=== PATIENT | female | born 1945 | race Caucasian/White ===

== ENCOUNTER 2016-11-29 09:34 | Emergency (ER) | payer MEDICARE, BC, MEDICAID ==
[2016-11-29] MEDS ORDERED: methylPREDNISolone Acetate 40 MG/ML SDV IARTIC ONE (10:29)
[2016-11-29 11:22] VITALS: BP 157/72
--- NOTE | 2016-11-29 12:46 | EDM.PDOC ---
ED HPI GENERAL MEDICAL PROBLEM - General Chief Complaint: General Stated Complaint: RIGHT IS VERY SORE AND PAINFUL Time Seen by Provider: 11/29/16 10:10 Source of Information: Reports: Patient History Limitations: Reports: No Limitations - History of Present Illness INITIAL COMMENTS - FREE TEXT/NARRATIVE: This patient complains of right wrist pain for one week. She says the pain is getting progressively worse. She had to take a pain pill last night (Narco 5/ 325) she takes meloxicam regularly. She has history of diabetes. She denies any fever. She said later that she hasn't slept for the past 2 nights because it hurts so much. She hasn't seen her doctor for this. She was bitten and they back of the leg by a tick a few weeks ago. Right Hand Pain Score (Numeric/FACES): 9 - Related Data Allergies Allergy/AdvReac Type Severity Reaction Status Date / Time aspirin Allergy Difficulty Verified 11/29/16 10:37 Breathing cephalexin [From Keflex] Allergy Wheezing Verified 11/29/16 10:37 phenazopyridine Allergy Rash Verified 11/29/16 10:37 [From Pyridium] Home Meds: Home Meds Cranberry 200 mg PO DAILY 11/29/16 [History] Dulaglutide [Trulicity] 0.75 mg SUBCUT WEEKLY 11/29/16 [History] Fish Oil/[place]-3 Fatty Acids [Fish Oil 1,000 MG] 1,000 mg PO DAILY 11/29/16 [ History] Fluticasone Propionate [Flovent Diskus] 50 mcg IH DAILY 11/29/16 [History] Insulin Detemir [Levemir] 54 unit SQ DAILY 11/29/16 [History] Levothyroxine 75 mcg PO ACBREAKFAST 11/29/16 [History] Losartan/Hydrochlorothiazide [Hyzaar 50-12.5 Tablet] 1 each PO DAILY 11/29/16 [ History] Meloxicam [Mobic] 15 mg PO DAILY 11/29/16 [History] Multivitamin with Minerals [Multiple Vitamin] 1 tab PO DAILY 11/29/16 [History] Ranitidine [Zantac] 300 mg PO BEDTIME 11/29/16 [History] Simvastatin [Zocor] 40 mg PO BEDTIME 11/29/16 [History] Zafirlukast [Accolate] 20 mg PO BID 11/29/16 [History] metFORMIN [Glucophage] 500 mg PO BIDMEALS 11/29/16 [History] Past Medical History HEENT History: Reports: Impaired Vision 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 History: 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, 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: 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/Metabolic 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: Reports: Diabetes, Type II, Hypothyroidism - Infectious Disease History Infectious Disease History: Reports: Chicken Pox, Measles, Mumps - Past Surgical History GI Surgical History: Reports: Cholecystectomy Female Surgical History: Reports: Hysterectomy Social & Family History - Tobacco Use Smoking Status *Q: Never Smoker - Caffeine Use Caffeine Use: Reports: Soda - Recreational Drug Use Recreational Drug Use: No ED ROS GENERAL - Review of Systems Review Of Systems: See Below Constitutional: Reports: No Symptoms HEENT: Reports: No Symptoms Respiratory: Reports: No Symptoms 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: Reports: No Symptoms Endocrine: Reports: No Symptoms GI/Abdominal: Reports: No Symptoms : Reports: No Symptoms Musculoskeletal: Reports: Other (See HPI) Skin: Reports: No Symptoms Neurological: Reports: No Symptoms ED EXAM, GENERAL - Physical Exam Exam: See Below Exam Limited By: No Limitations General Appearance: Alert, WD/WN, Mild Distress Eye Exam: Bilateral Eye: Normal Inspection Throat/Mouth: Normal Inspection Neck: Normal Inspection Respiratory/Chest: Lungs Clear 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: Normal Peripheral Pulses, Regular Rate, Rhythm Extremities: Other (There is some mild swelling and suggestion of an effusion to the right wrist. There is limited range of motion of the wrist. She says it hurts to move her fingers. Skin color is completely normal. There is no erythema to the wrist. There is no increased warmth to the right wrist.) Neurological: Alert, Oriented Psychiatric: Normal Affect Skin Exam: Warm, Dry, Intact. No: Rash Course - Vital Signs Last Recorded V/S: Last Vital Signs Temp 36.9 C 11/29/16 09:56 Pulse 84 11/29/16 11:20 Resp 15 11/29/16 11:20 BP 157/72 H 11/29/16 11:20 Pulse Ox 95 11/29/16 11:20 - Orders/Labs/Meds Orders: Active Orders 24 hr Category Date Time Status CULTURE BODY FLUID + SMEAR [RM] Routine Lab 11/29/16 12:32 Results LYME AB SCREEN RFLX [REF] Routine Lab 11/29/16 12:32 Received Labs: Laboratory Tests 11/29/16 Range/Units 12:32 Fluid Type Oth Fluid WBC 25877 /ul Fluid RBC [id number] /ul Fluid Diff Comment Fluid Mononuclear Cell 12 % Fl Polymorphonucl Cell 88 % Meds: Medications Discontinued Medications Generic Name Dose Route Start Last Admin Trade Name Marco PRN Reason Stop Dose Admin Lidocaine HCl 5 ml 11/29/16 10:29 11/29/16 10:38 Xylocaine-Mpf 1% INJECT 11/29/16 10:30 5 ml ONETIME ONE Administration Methylprednisolone Acetate 40 mg 11/29/16 10:29 11/29/16 10:38 Depo-Medrol IARTIC 11/29/16 10:30 40 mg ONETIME ONE Administration - Re-Assessments/Exams Free Text/Narrative Re-Assessment/Exam: 11/29/16 15:20 Exam of the right wrist gives no suggestion of a septic joint. My initial plan was for her to just use analgesics but I would put her on doxycycline just because of her history of a bite. She complained more that the pain was so bad she couldn't sleep and she asked me to go ahead and do a steroid injection. I explained to her the risk of joint aspiration and that it could possibly to infection and that would require surgery. I didn't feel that at this time it was really needed however she stated again how uncomfortable she was. Procedure: Wrist aspiration with corticosteroid injection. A consent form was requested however at the time of the procedure a determined that that had never been completed. I explained to the patient again the risks of the procedure being possibly joint infection and bleeding. She voiced understanding that we both agreed that the amount of pain she was having justified the procedure. The wrist was draped with sterile towels and using sterile procedure the dorsum of the wrist was cleaned with Betadine swab x3 this being applied to all the way to the fingertips and jail up the upper arm. 4 mL of 1% plain lidocaine was drawn up in a sterile syringe by sterile technique and 2 this was added 40 mg of Depo-Medrol. Approximately 1 mL of 1% plain lidocaine was injected into the skin on the dorsum of the wrist. This with a #23 needle. A #20 needle was then inserted to the dorsum of the wrist right in the. This caused her some difficulty at first and the needle was removed and then reinserted and I was able to get it into the joint space. Approximately 1 or 1.5 mL of blood-tinged low viscosity fluid was then removed. It appeared to be a little bit lower viscosity then normal synovial fluid. There was no obvious pus. I determined that the 5 mL of lidocaine plus Depo-Medrol in this range would be too great of of volume and so the mixture was allowed to settle out and I expelled about 2 mL of the overlying lidocaine. The left knee with another 2 mL of lidocaine plus an estimated 30 mg of Depo-Medrol. This was then injected into the wrist and she tolerated that well. She seemed to be having less pain after the injection as the lidocaine took effect. The synovial fluid was then sent for cell count Gram stain and culture. The white blood cell count was 25,200 and the differential was 88% p.m. in this and 12% monos nucleated cells. RBCs were 189,000 a letter sure review shows a white blood cell count 25,000 is associated with about a 2% chance of sepsis. Gram stain showed RBCs WBCs and no bacteria whatsoever. And a culture was set up. I discussed the findings with the patient and the fact that I don't think there is any reasonable chance of a septic joint. I think this is just inflammatory. A Lyme titer was sent and this would not really be of benefit in the acute setting. I'm placing her on doxycycline 100 mg twice daily for 14 days. Our practice here is to treat people with doxycycline whenever they're bitten by a deer tick. She was instructed to follow up with her doctor within about one week and to seek care immediately if she's having worsening pain and swelling and definitely if she has any redness or increased warmth to the wrist. Departure - Departure Time of Disposition: 12:43 Disposition: Home, Self-Care 01 Condition: fair Clinical Impression: Monoarticular arthritis - Discharge Information Instructions: Arthritis, [id number] Referrals: Shawnee Gray PA [Primary Care Provider] - Forms: ED Department Discharge Additional Instructions: The joint fluid showed some blood and there were also some white blood cells but it's very doubtful there's actually a bacterial infection. Lyme disease is still a possibility so take doxycycline 100 mg twice daily for 14 days. This is a treatment for Lyme disease. The fluid from your wrist was sent for a culture and this will take several days to come back. For pain continue taking meloxicam and you may also take your own hydrocodone. Please see your DrMarleen in about a week. A test for Lyme disease was also sent. 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
== END 2016-11-29 13:27 | disposition home or self-care (01) ==
LOC: JP.ED 09:34
DX: M13.131 Monoarthritis, not elsewhere classified, right wrist (principal); E11.9 Type 2 diabetes mellitus without complications; I10 Essential (primary) hypertension; E78.00 Pure hypercholesterolemia, unspecified; E03.9 Hypothyroidism, unspecified; Z90.49 Acquired absence of other specified parts of digestive tract; Z90.710 Acquired absence of both cervix and uterus; Z79.84 Long term (current) use of oral hypoglycemic drugs; Z79.4 Long term (current) use of insulin; Z88.5 Allergy status to narcotic agent; Z88.1 Allergy status to other antibiotic agents; Z88.8 Allergy status to other drugs, medicaments and biological substances
CPT/HCPCS: 20605; 36415; 86617; 86618; 87070; 87205; 89050; 99284; J1030; 99283-25

== ENCOUNTER 2018-09-10 10:12 | Emergency (ER) | payer MEDICARE, BC, MEDICAID ==
--- NOTE | 2018-09-10 10:20 | EDM.PDOC ---
ED HPI GENERAL MEDICAL PROBLEM - General Chief Complaint: Chest Pain Stated Complaint: CHEST PAIN Time Seen by Provider: 09/10/18 10:20 Source of Information: Reports: Patient History Limitations: Reports: No Limitations - History of Present Illness INITIAL COMMENTS - FREE TEXT/NARRATIVE: pt was shoveling on thur and she developed tightness in the chest, she felt like her heart was rapid and she was sob. Onset: Other ( started thur. ) Duration: Hour(s):, Other (pt did not feel gassey. ) Location: Reports: Chest, Other (pt does not have swelling in her ankles. ) Associated Symptoms: Reports: Chest Pain, Other ( she would describe the pain as tightness. ) - Related Data Allergies Allergy/AdvReac Type Severity Reaction Status Date / Time aspirin Allergy Difficulty Verified 11/29/16 10:37 Breathing cephalexin [From Keflex] Allergy Wheezing Verified 11/29/16 10:37 phenazopyridine Allergy Rash Verified 11/29/16 10:37 [From Pyridium] Home Meds: Home Meds Cranberry 200 mg PO DAILY 11/29/16 [History] Dulaglutide [Trulicity] 0.75 mg SUBCUT WEEKLY 11/29/16 [History] Fish Oil/[place]-3 Fatty Acids [Fish Oil 1,000 MG] 1,000 mg PO DAILY 11/29/16 [ History] Fluticasone Propionate [Flovent Diskus] 50 mcg IH DAILY 11/29/16 [History] Insulin Detemir [Levemir] 54 unit SQ DAILY 11/29/16 [History] Levothyroxine 75 mcg PO ACBREAKFAST 11/29/16 [History] Losartan/Hydrochlorothiazide [Hyzaar 50-12.5 Tablet] 1 each PO DAILY 11/29/16 [ History] Meloxicam [Mobic] 15 mg PO DAILY 11/29/16 [History] Multivitamin with Minerals [Multiple Vitamin] 1 tab PO DAILY 11/29/16 [History] Ranitidine [Zantac] 300 mg PO BEDTIME 11/29/16 [History] Simvastatin [Zocor] 40 mg PO BEDTIME 11/29/16 [History] Zafirlukast [Accolate] 20 mg PO BID 11/29/16 [History] metFORMIN [Glucophage] 500 mg PO BIDMEALS 11/29/16 [History] Past Medical History HEENT History: Reports: Impaired Vision 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 History: 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, 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: 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/Metabolic 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: Reports: Diabetes, Type II, Hypothyroidism - Infectious Disease History Infectious Disease History: Reports: Chicken Pox, Measles, Mumps - Past Surgical History GI Surgical History: Reports: Cholecystectomy Female Surgical History: Reports: Hysterectomy Social & Family History - Tobacco Use Smoking Status *Q: Never Smoker - Caffeine Use Caffeine Use: Reports: Coffee, Tea - Recreational Drug Use Recreational Drug Use: No ED ROS GENERAL - Review of Systems Review Of Systems: See Below Constitutional: Reports: No Symptoms HEENT: Reports: No Symptoms Respiratory: Reports: No Symptoms 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: Reports: Chest Pain, Dyspnea on Exertion, Other (pt gets chest tightness when she exercises. ) Endocrine: Reports: No Symptoms GI/Abdominal: Reports: No Symptoms : Reports: No Symptoms Musculoskeletal: Reports: No Symptoms Skin: Reports: No Symptoms ED EXAM, GENERAL - Physical Exam Exam: See Below Free Text/Narrative:: PT ARRIVED WITH A HISTORY OF CHEST TIGHTNESS EVERYTIME SHE MOVES AROUND TO ANY EXTEND IN THE LAST 2 DAYS. sHE WAS SHOVELING ON THUR AND IT STARTED AT THAT TIME AND IT HAS BEEN PERSISTENT. Exam Limited By: No Limitations General Appearance: Alert, No Apparent Distress, Other (PT IS PAINFREE AT THIS TIME. sHE IS ALLERGIC TO asa) Ears: Normal TMs Nose: Normal Inspection Throat/Mouth: Normal Inspection Head: Atraumatic Neck: Normal Inspection Respiratory/Chest: No Respiratory Distress 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: Regular Rate, Rhythm, Other (PT IS HAVING A OCCASIONAL ECTOPIC. ) GI/Abdominal: Soft, Non-Tender (Female) Exam: Deferred Rectal (Female) Exam: Deferred Back Exam: Normal Inspection Extremities: Normal Inspection Neurological: Alert, Oriented, Normal Cognition Psychiatric: Normal Affect Course - Vital Signs Last Recorded V/S: Last Vital Signs Temp 35.6 C 09/11/18 07:04 Pulse 86 09/11/18 07:04 Resp 16 09/11/18 07:04 BP 155/68 H 09/11/18 07:04 Pulse Ox 97 09/11/18 07:04 - Orders/Labs/Meds Orders: Active Orders 24 hr Category Date Time Status EKG 12 Lead [EK] Routine Ther 09/10/18 10:19 Stop Req Medication Orders Acetaminophen (Tylenol) 650 mg PO Q4H PRN PRN Reason: Pain (Mild 1-3)/fever Hydrochlorothiazide (Hydrochlorothiazide) 12.5 mg PO DAILY [facility] Levothyroxine Sodium (Levothyroxine) 75 mcg PO ACBREAKFAST [facility] Last Admin: 09/11/18 07:25 Dose: 75 mcg Losartan Potassium (Cozaar) 50 mg PO DAILY [facility] Meloxicam (Mobic) 15 mg PO DAILY [facility] Metformin HCl (Glucophage) 500 mg PO BIDMEALS [facility] Last Admin: 09/10/18 17:17 Dose: 500 mg Multivitamins/Minerals (Thera M Plus) 1 tab PO DAILY [facility] Insulin Detemir ( Levemir) 54 Unit Pom 0 unit SQ DAILY [facility] Non-Formulary Medication (Zafirlukast [Accolate]) 20 mg PO BID [facility] Dulaglutude ( Trulicity) InjPom* * 0 each SQ Q7D [facility] Last Admin: 09/10/18 17:16 Dose: 1 each Ondansetron HCl (Zofran Odt) 4 mg PO Q6H PRN PRN Reason: Nausea able to take PO Ranitidine HCl (Zantac) 300 mg PO BEDTIME [facility] Last Admin: 09/10/18 20:28 Dose: 300 mg Simvastatin (Zocor) 40 mg PO BEDTIME [facility] Last Admin: 09/10/18 20:28 Dose: 40 mg Labs: Laboratory Tests 09/10/18 09/10/18 09/10/18 Range/Units 10:19 10:20 12:20 WBC 7.2 (4.5-11.0) K/uL RBC 4.46 (3.30-5.50) M/uL Hgb 12.8 (12.0-15.0) g/dL Hct 40.0 (36.0-48.0) % MCV 90 (80-98) fL MCH 29 (27-31) pg MCHC 32 (32-36) % Plt Count 215 (150-400) K/uL Neut % (Auto) 58 (36-66) % Lymph % (Auto) 33 (24-44) % [place] % (Auto) 6 (2-6) % Eos % (Auto) 3 (2-4) % Baso % (Auto) 1 (0-1) % Sodium 141 (140-148) mmol/L Potassium 4.4 (3.6-5.2) mmol/L Chloride 106 (100-108) mmol/L Carbon Dioxide 21 (21-32) mmol/L Anion Gap 18.4 H (5.0-14.0) mmol/L BUN 51 H (7-18) mg/dL Creatinine 1.0 (0.6-1.0) mg/dL Est Cr Clr Drug Dosing 45.76 mL/min Estimated GFR (MDRD) 55 L (>60) Glucose 135 H (74-106) mg/dL Calcium 9.6 (8.5-10.1) mg/dL Total Bilirubin 0.5 (0.2-1.0) mg/dL AST 13 L (15-37) U/L ALT 26 (12-78) U/L Alkaline Phosphatase 47 (46-116) U/L Troponin I < 0.017 < 0.017 (0.000-0.056) ng/mL NT-Pro-B Natriuret Pep 106 (5-125) pg/mL Total Protein 8.3 H (6.4-8.2) g/dL Albumin 3.8 (3.4-5.0) g/dL Globulin 4.5 H (2.3-3.5) g/dL Albumin/Globulin Ratio 0.8 L (1.2-2.2) Urine Color Urine Appearance Urine pH (4.5-8.0) Ur Specific [place] (1.008-1.030) Urine Protein (NEGATIVE) mg/dL Urine Glucose (UA) (NEGATIVE) mg/dL Urine Ketones (NEGATIVE) mg/dL Urine Occult Blood (NEGATIVE) Urine Nitrite (NEGATIVE) Urine Bilirubin (NEGATIVE) Urine Urobilinogen (NORMAL) mg/dL Ur Leukocyte Esterase (NEGATIVE) Urine RBC (0-5) Urine WBC (0-5) Ur Epithelial Cells Amorphous Sediment Urine Bacteria Urine Mucus 09/10/18 Range/Units 14:02 WBC (4.5-11.0) K/uL RBC (3.30-5.50) M/uL Hgb (12.0-15.0) g/dL Hct (36.0-48.0) % MCV (80-98) fL MCH (27-31) pg MCHC (32-36) % Plt Count (150-400) K/uL Neut % (Auto) (36-66) % Lymph % (Auto) (24-44) % [place] % (Auto) (2-6) % Eos % (Auto) (2-4) % Baso % (Auto) (0-1) % Sodium (140-148) mmol/L Potassium (3.6-5.2) mmol/L Chloride (100-108) mmol/L Carbon Dioxide (21-32) mmol/L Anion Gap (5.0-14.0) mmol/L BUN (7-18) mg/dL Creatinine (0.6-1.0) mg/dL Est Cr Clr Drug Dosing mL/min Estimated GFR (MDRD) (>60) Glucose (74-106) mg/dL Calcium (8.5-10.1) mg/dL Total Bilirubin (0.2-1.0) mg/dL AST (15-37) U/L ALT (12-78) U/L Alkaline Phosphatase (46-116) U/L Troponin I (0.000-0.056) ng/mL NT-Pro-B Natriuret Pep (5-125) pg/mL Total Protein (6.4-8.2) g/dL Albumin (3.4-5.0) g/dL Globulin (2.3-3.5) g/dL Albumin/Globulin Ratio (1.2-2.2) Urine Color Yellow Urine Appearance Clear Urine pH 5.0 (4.5-8.0) Ur Specific [place] 1.020 (1.008-1.030) Urine Protein Trace (NEGATIVE) mg/dL Urine Glucose (UA) Normal (NEGATIVE) mg/dL Urine Ketones Negative (NEGATIVE) mg/dL Urine Occult Blood Negative (NEGATIVE) Urine Nitrite Negative (NEGATIVE) Urine Bilirubin Small (NEGATIVE) Urine Urobilinogen Normal (NORMAL) mg/dL Ur Leukocyte Esterase Moderate (NEGATIVE) Urine RBC 0-5 (0-5) Urine WBC 5-10 H (0-5) Ur Epithelial Cells Rare Amorphous Sediment Not seen Urine Bacteria Few Urine Mucus Not seen Meds: Medications Generic Name Dose Route Start Last Admin Trade Name Freq PRN Reason Stop Dose Admin Acetaminophen 650 mg 09/10/18 15:53 Tylenol PO Q4H PRN Pain (Mild 1-3)/fever Hydrochlorothiazide 12.5 mg 09/11/18 09:00 Hydrochlorothiazide PO DAILY [facility] Levothyroxine Sodium 75 mcg 09/11/18 07:30 09/11/18 07:25 Levothyroxine PO 75 mcg ACBREAKFAST [facility] Administration Losartan Potassium 50 mg 09/11/18 09:00 Cozaar PO DAILY [facility] Meloxicam 15 mg 09/11/18 09:00 Mobic PO DAILY [facility] Metformin HCl 500 mg 09/10/18 17:00 09/10/18 17:17 Glucophage PO 500 mg BIDMEALS [facility] Administration Multivitamins/Minerals 1 tab 09/11/18 09:00 Thera M Plus PO DAILY [facility] Insulin Detemir ( 0 unit 09/11/18 09:00 Levemir) 54 Unit SQ Pom DAILY [facility] Non-Formulary Medication 20 mg 09/10/18 21:00 Zafirlukast [Accolate] PO BID [facility] Dulaglutude ( 0 each 09/10/18 17:15 09/10/18 17:16 Trulicity) InjPom* SQ 1 each * Q7D [facility] Administration Ondansetron HCl 4 mg 09/10/18 15:53 Zofran Odt PO Q6H PRN Nausea able to take PO Ranitidine HCl 300 mg 09/10/18 21:00 09/10/18 20:28 Zantac PO 300 mg BEDTIME [facility] Administration Simvastatin 40 mg 09/10/18 21:00 09/10/18 20:28 Zocor PO 40 mg BEDTIME [facility] Administration - Re-Assessments/Exams Free Text/Narrative Re-Assessment/Exam: 09/10/18 11:09 pt has a normal trop. Her bnp is normal. Her bs is 135. Her bun is 50 and a creatnine of 1.0. 09/10/18 11:32 chest xray revealed no acute infiltrates. 09/10/18 12:52 pt had a second trop at 12 thirty and that was normal. Departure - Departure Time of Disposition: 12:53 Disposition: Admitted As Inpatient 67 Condition: Fair Clinical Impression: Atypical angina, Arrhythmia - My Orders Last 24 Hours: My Active Orders 09/10/18 10:19 EKG 12 Lead [EK] Routine - Assessment/Plan Last 24 Hours: My Active Orders 09/10/18 10:19 EKG 12 Lead [EK] Routine
--- NOTE | 2018-09-10 12:08 | CRLCR ---
CHEST 1 VIEW AP INDICATION: Short of breath. Chest tightness. IMPRESSION: Normal heart size and vascular pattern. Lungs are clear. No pneumothorax or pleural effusion. ECG Monitor leads projected over the patient. Dictated by David Canales MD @ Sep 10 2018 12:06PM Signed by Dr. David Canales @ Sep 10 2018 12:06PM
--- NOTE | 2018-09-10 15:12 | PCM.HP ---
H&P History of Present Illness - General Date of Service: 09/10/18 Admit Problem/Dx: Admission Diagnosis/Problem Admission Diagnosis/Problem Chest pain Source of Information: Patient, Provider History Limitations: Reports: No Limitations - History of Present Illness Initial Comments - Free Text/Narative: Perla presents to the ER today with chest pressure. She had a mild episode a couple of weeks ago and it passed fairly quickly and she ignored it. She had another episode a couple of days ago well shoveling snow. This lasted for for about 30 minutes before subsiding with rest. She had several episodes yesterday while she was active but no difficulty while she was at rest. This morning she developed chest pressure while she was going from bedroom to bathroom and was convinced she should come in and be checked out. She describes chest pressure that is 4 out of 10 on the intensity scale but does not call it chest pain. It is located in the center of her chest and does not radiate. She describes a fairly small area approximately 2-3 inches in diameter. Pain has always started with exertion and often resolves after she sits down to rest. She usually feels short of breath after the episode occurs. No associated nausea or diaphoresis. She has not been exercising for the past couple of months but prior to 2 months ago she was able to walk a mile on the treadmill without chest pressure or shortness of breath. She has not had any fevers. No change in bowel or bladder habits. No history of heart disease. Ur cup in the emergency room was reassuring with to normal troponin levels and otherwise normal labs. There is concern for increasing episodes of chest pressure and severity of the episodes. She will be admitted for observation and stress testing. - Related Data Allergies/Adverse Reactions: Allergies Allergy/AdvReac Type Severity Reaction Status Date / Time aspirin Allergy Difficulty Verified 11/29/16 10:37 Breathing cephalexin [From Keflex] Allergy Wheezing Verified 11/29/16 10:37 phenazopyridine Allergy Rash Verified 11/29/16 10:37 [From Pyridium] Home Medications: Home Meds Cranberry 200 mg PO DAILY 11/29/16 [History] Dulaglutide [Trulicity] 0.75 mg SUBCUT WEEKLY 11/29/16 [History] Fish Oil/[place]-3 Fatty Acids [Fish Oil 1,000 MG] 1,000 mg PO DAILY 11/29/16 [ History] Fluticasone Propionate [Flovent Diskus] 50 mcg IH DAILY 11/29/16 [History] Insulin Detemir [Levemir] 54 unit SQ DAILY 11/29/16 [History] Levothyroxine 75 mcg PO ACBREAKFAST 11/29/16 [History] Losartan/Hydrochlorothiazide [Hyzaar 50-12.5 Tablet] 1 each PO DAILY 11/29/16 [ History] Meloxicam [Mobic] 15 mg PO DAILY 11/29/16 [History] Multivitamin with Minerals [Multiple Vitamin] 1 tab PO DAILY 11/29/16 [History] Ranitidine [Zantac] 300 mg PO BEDTIME 11/29/16 [History] Simvastatin [Zocor] 40 mg PO BEDTIME 11/29/16 [History] Zafirlukast [Accolate] 20 mg PO BID 11/29/16 [History] metFORMIN [Glucophage] 500 mg PO BIDMEALS 11/29/16 [History] Past Medical History HEENT History: Reports: Impaired Vision 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 History: 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, Hypertension 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: Endocrine/Metabolic History: Reports: Diabetes, Type II, Hypothyroidism - Infectious Disease History Infectious Disease History: Reports: Chicken Pox, Measles, Mumps - Past Surgical History GI Surgical History: Reports: Cholecystectomy Female Surgical History: Reports: Hysterectomy Social & Family History - Family History Cardiac: Denies: CAD - Tobacco Use Smoking Status *Q: Never Smoker - Caffeine Use Caffeine Use: Reports: Coffee, Tea - Alcohol Use Alcohol Use History: No - Recreational Drug Use Recreational Drug Use: No H&P Review of Systems - Review of Systems: Review Of Systems: See Below Free Text/Narrative: A complete 12 point review of systems was obtained. Pertinent positives and negatives are noted in the history of present illness. All other systems were reviewed and were negative except as noted. Exam - Exam Exam: See Below - Vital Signs Vital Signs: Last Vital Signs Temp 36.2 C 09/10/18 10:15 Pulse 100 09/10/18 10:15 Resp 20 09/10/18 10:15 BP 176/71 H 09/10/18 10:15 Pulse Ox 96 09/10/18 10:15 Weight: 95.254 kg - Exam Quality Assessment: No: Supplemental Oxygen General: Alert, Oriented, Cooperative. No: Mild Distress HEENT: Conjunctiva Clear, Mucosa Moist & Foster. No: Scleral Icterus Neck: Supple, Trachea Midline. No: Lymphadenopathy Lungs: Clear to Auscultation, Normal Respiratory Effort 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: Regular Rate, Regular Rhythm. No: Systolic Murmur GI/Abdominal Exam: Normal Bowel Sounds, Soft, No Distention Extremities: No Pedal Edema. No: Increased Warmth Skin: Warm, Dry Neuro Extensive - Mental Status: Alert, Oriented x3, Nl Response to Commands Neuro Extensive - Motor, Sensory, Reflexes: No: Dysarthria, Abnormal Motor, Tremor Psychiatric: Alert, Normal Affect - Patient Data Lab Results Last 24 hrs: Laboratory Results - last 24 hr 09/10/18 09/10/18 09/10/18 Range/Units 10:19 10:20 12:20 WBC 7.2 (4.5-11.0) K/uL RBC 4.46 (3.30-5.50) M/uL Hgb 12.8 (12.0-15.0) g/dL Hct 40.0 (36.0-48.0) % MCV 90 (80-98) fL MCH 29 (27-31) pg MCHC 32 (32-36) % Plt Count 215 (150-400) K/uL Neut % (Auto) 58 (36-66) % Lymph % (Auto) 33 (24-44) % [place] % (Auto) 6 (2-6) % Eos % (Auto) 3 (2-4) % Baso % (Auto) 1 (0-1) % Sodium 141 (140-148) mmol/L Potassium 4.4 (3.6-5.2) mmol/L Chloride 106 (100-108) mmol/L Carbon Dioxide 21 (21-32) mmol/L Anion Gap 18.4 H (5.0-14.0) mmol/L BUN 51 H (7-18) mg/dL Creatinine 1.0 (0.6-1.0) mg/dL Est Cr Clr Drug Dosing 45.76 mL/min Estimated GFR (MDRD) 55 L (>60) Glucose 135 H (74-106) mg/dL Calcium 9.6 (8.5-10.1) mg/dL Total Bilirubin 0.5 (0.2-1.0) mg/dL AST 13 L (15-37) U/L ALT 26 (12-78) U/L Alkaline Phosphatase 47 (46-116) U/L Troponin I < 0.017 < 0.017 (0.000-0.056) ng/mL NT-Pro-B Natriuret Pep 106 (5-125) pg/mL Total Protein 8.3 H (6.4-8.2) g/dL Albumin 3.8 (3.4-5.0) g/dL Globulin 4.5 H (2.3-3.5) g/dL Albumin/Globulin Ratio 0.8 L (1.2-2.2) Urine Color Urine Appearance Urine pH (4.5-8.0) Ur Specific [place] (1.008-1.030) Urine Protein (NEGATIVE) mg/dL Urine Glucose (UA) (NEGATIVE) mg/dL Urine Ketones (NEGATIVE) mg/dL Urine Occult Blood (NEGATIVE) Urine Nitrite (NEGATIVE) Urine Bilirubin (NEGATIVE) Urine Urobilinogen (NORMAL) mg/dL Ur Leukocyte Esterase (NEGATIVE) Urine RBC (0-5) Urine WBC (0-5) Ur Epithelial Cells Amorphous Sediment Urine Bacteria Urine Mucus 09/10/18 Range/Units 14:02 WBC (4.5-11.0) K/uL RBC (3.30-5.50) M/uL Hgb (12.0-15.0) g/dL Hct (36.0-48.0) % MCV (80-98) fL MCH (27-31) pg MCHC (32-36) % Plt Count (150-400) K/uL Neut % (Auto) (36-66) % Lymph % (Auto) (24-44) % [place] % (Auto) (2-6) % Eos % (Auto) (2-4) % Baso % (Auto) (0-1) % Sodium (140-148) mmol/L Potassium (3.6-5.2) mmol/L Chloride (100-108) mmol/L Carbon Dioxide (21-32) mmol/L Anion Gap (5.0-14.0) mmol/L BUN (7-18) mg/dL Creatinine (0.6-1.0) mg/dL Est Cr Clr Drug Dosing mL/min Estimated GFR (MDRD) (>60) Glucose (74-106) mg/dL Calcium (8.5-10.1) mg/dL Total Bilirubin (0.2-1.0) mg/dL AST (15-37) U/L ALT (12-78) U/L Alkaline Phosphatase (46-116) U/L Troponin I (0.000-0.056) ng/mL NT-Pro-B Natriuret Pep (5-125) pg/mL Total Protein (6.4-8.2) g/dL Albumin (3.4-5.0) g/dL Globulin (2.3-3.5) g/dL Albumin/Globulin Ratio (1.2-2.2) Urine Color Yellow Urine Appearance Clear Urine pH 5.0 (4.5-8.0) Ur Specific [place] 1.020 (1.008-1.030) Urine Protein Trace (NEGATIVE) mg/dL Urine Glucose (UA) Normal (NEGATIVE) mg/dL Urine Ketones Negative (NEGATIVE) mg/dL Urine Occult Blood Negative (NEGATIVE) Urine Nitrite Negative (NEGATIVE) Urine Bilirubin Small (NEGATIVE) Urine Urobilinogen Normal (NORMAL) mg/dL Ur Leukocyte Esterase Moderate (NEGATIVE) Urine RBC 0-5 (0-5) Urine WBC 5-10 H (0-5) Ur Epithelial Cells Rare Amorphous Sediment Not seen Urine Bacteria Few Urine Mucus Not seen Result Diagrams: 09/10/18 10:19 09/10/18 10:20 Imaging Impressions Last 24 hrs: CXR - images personally reviewed - lungs are clear with no mass, effusion or chf. Heart size is normal. EKG INTERPRETATION Rhythm: NSR Rate (Beats/Min): 93 [place]: Normal P-Wave: Present QRS: Normal ST-T: Normal QT: Normal Comparison: NA - No Prior EKG *Q Meaningful Use (ADM) - VTE Risk Assess *Q Each Risk Factor Represents 1 Point: Obesity ( BMI > 25 kg/m2) Total Score 1 Point Risk Factors: 1 Each Risk Factor Represents 2 Points: Age 60 - 74 Years Total Score 2 Point Risk Factors: 2 Each Risk Factor Represents 3 Points: None Total Score 3 Point Risk Factors: 0 Each Risk Factor Represents 5 Points: None Total Score 5 Point Risk Factors: 0 Venous Thromboembolism Risk Factor Score *Q: 3 - Problem List (1) Chest pain on exertion SNOMED Code(s): 43877172 ICD Code: R07.9 - CHEST PAIN, UNSPECIFIED Status: Acute Current Visit: Yes (2) Insulin dependent diabetes mellitus SNOMED Code(s): 91858974 ICD Code: E11.9 - TYPE 2 DIABETES MELLITUS WITHOUT COMPLICATIONS; 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 She is high risk with her insulin-dependent diabetes mellitus. No family history of heart disease. She is a nonsmoker. She has had increasing frequency and severity of episodes. -Cardiac monitoring -Exercise Cardiolite stress test in the morning -Lipid panel in the morning -Patient did not receive aspirin because of an allergy Insulin-dependent diabetes mellitus - Very well controlled. A1c was 6. -Continue home medications -Twice a day Accu-Cheks Maintenance issues - - DVT prophylaxis - patient will be ambulatory - GI prophylaxis - not indicated - Nutrition - diabetic diet - Amaro catheter - not indicated CODE STATUS - full code Admission justification - patient will be referred observation status for cardiac monitoring and expedited stress testing. Disposition - I would anticipate discharge home tomorrow unless her stress test is abnormal and she may need transfer for intervention with cardiology Primary care physician - Fadi in [place]key Montoya M.D.
[2018-09-10] MEDS ORDERED: Acetaminophen 325 MG Tab PO PRN (15:53)
[2018-09-10] MEDS ORDERED: Ondansetron 4 MG Tab.DIS PO PRN (15:53)
[2018-09-10] MEDS ORDERED: DULAGLUTIDE SQ SCH (17:15)
[2018-09-10] MEDS: metFORMIN 500 MG Tab PO SCH (17:17)
[2018-09-10] MEDS ORDERED: Simvastatin 20 MG Tab PO SCH (21:00)
[2018-09-11] MEDS ORDERED: Levothyroxine 25 MCG Tab PO SCH (07:30)
[2018-09-11] MEDS ORDERED: INSULIN DETEMIR 54 UNIT SQ SCH (09:00)
[2018-09-11] MEDS ORDERED: Non-Formulary Medication 1 Each (Fluticasone Propionate [Flovent] 50 MCG) IH SCH (09:00)
[2018-09-11] MEDS ORDERED: Losartan 50 MG Tab PO SCH (09:00)
[2018-09-11] MEDS ORDERED: Multivitamins with Iron/Calcium/Folic Acid/Minerals Tab PO SCH (09:00)
[2018-09-11] MEDS ORDERED: Hydrochlorothiazide 12.5 MG Cap PO SCH (09:00)
[2018-09-11] MEDS ORDERED: Meloxicam 7.5 MG Tab PO SCH (09:00)
[2018-09-11] MEDS: metFORMIN 500 MG Tab PO SCH (10:48)
--- NOTE | 2018-09-11 10:50 | PCM.DCSUM1 ---
Discharge Summary - Hospital Course Brief History: 73-year-old female with insulin-dependent diabetes mellitus who presented with several days of intermittent episodes of exertional chest pressure. She was admitted for observation and expedited chest pain workup. 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 Workup in the emergency room was reassuring but given the scary nature of the story the patient was admitted for observation and expedited workup including stress testing. There were no abnormalities noted on telemetry overnight. There were no abnormal vitals. Patient did not have any episodes of chest pain. The morning after admission she had an exercise Cardiolite stress test. This showed a very tiny inferior wall fixed defect versus more likely motion artifact. The EKG portion was unremarkable other than 3 episodes of sinus positive which were one beat at a time. She did not have any chest pain with exertion and she did surpass her target heart rate. The exact cause for her chest pain is not clear at this time but does not seem to be cardiac in nature unless she has balanced ischemia but I doubt this given her lack of chest pain with fairly significant exertion on the treadmill. She's been up and walking around and feels well. I believe she is safe for discharge home at this time. She can resume her usual activities. She will follow-up if she has additional symptoms. A Holter monitor could be considered for evaluation as well. - Patient Instructions Diet: Diabetic Diet Activity: As Tolerated Driving: May Drive Today Showering/Bathing: May Shower Notify Provider of: Fever, Increased Pain, Nausea and/or Vomiting Other/Special Instructions: 1. You were in the hospital for observation following episodes of chest pressure. We performed an exercise stress test with nuclear medicine imaging. We did not find any evidence that you had blockages in your coronary arteries. you may resume your usual activities. If you have recurrence of your symptoms that are mild you should follow-up with either your primary care or the emergency room but if you have additional episodes of severe chest pressure please come directly to the emergency room. 2. Continue your home medications as previously prescribed. 3. Seek medical attention if you fever greater than 101, severe chest pain/pressure or acute onset of shortness of breath. - Discharge Plan *PRESCRIPTION DRUG MONITORING PROGRAM REVIEWED*: Not Applicable *COPY OF PRESCRIPTION DRUG MONITORING REPORT IN PATIENT ASHLEY: Not Applicable Home Medications: Home Meds Cranberry 200 mg PO DAILY 11/29/16 [History] Dulaglutide [Trulicity] 0.75 mg SUBCUT WEEKLY 11/29/16 [History] Fish Oil/[place]-3 Fatty Acids [Fish Oil 1,000 MG] 1,000 mg PO DAILY 11/29/16 [ History] Fluticasone Propionate [Flovent] 50 mcg IH DAILY 11/29/16 [History] Insulin Detemir [Levemir] 54 unit SQ DAILY 11/29/16 [History] Levothyroxine 75 mcg PO ACBREAKFAST 11/29/16 [History] Losartan/Hydrochlorothiazide [Hyzaar 50-12.5 Tablet] 1 each PO DAILY 11/29/16 [ History] Meloxicam [Mobic] 15 mg PO DAILY 11/29/16 [History] Multivitamin with Minerals [Multiple Vitamin] 1 tab PO DAILY 11/29/16 [History] Ranitidine [Zantac] 300 mg PO BEDTIME 11/29/16 [History] Simvastatin [Zocor] 40 mg PO BEDTIME 11/29/16 [History] Zafirlukast [Accolate] 20 mg PO BID 11/29/16 [History] metFORMIN [Glucophage] 500 mg PO BIDMEALS 11/29/16 [History] Oxygen Therapy Mode: Room Air Patient Handouts: Exercise Stress Test, [id number], Cardiac Nuclear Scan Referrals: Shawnee Gray PA [Consulting Physician] - (follow-up if you have recurrent symptoms) - Discharge Summary/Plan Comment DC Time >30 min.: No - Patient Data Vitals - Most Recent: Last Vital Signs Temp 35.6 C 09/11/18 07:04 Pulse 71 09/11/18 08:32 Resp 16 09/11/18 07:04 BP 165/95 H 09/11/18 08:32 Pulse Ox 97 09/11/18 07:04 Weight - Most Recent: 95.254 kg I&O - Last 24 hours: Intake & Output 09/10/18 09/11/18 09/11/18 22:59 06:59 14:59 Intake Total 592 Balance 592 Lab Results - Last 24 hrs: Laboratory Results - last 24 hr 09/10/18 09/10/18 09/10/18 Range/Units 10:20 12:20 14:02 Sodium 141 (140-148) mmol/L Potassium 4.4 (3.6-5.2) mmol/L Chloride 106 (100-108) mmol/L Carbon Dioxide 21 (21-32) mmol/L Anion Gap 18.4 H (5.0-14.0) mmol/L BUN 51 H (7-18) mg/dL Creatinine 1.0 (0.6-1.0) mg/dL Est Cr Clr Drug Dosing 45.76 mL/min Estimated GFR (MDRD) 55 L (>60) Glucose 135 H (74-106) mg/dL Calcium 9.6 (8.5-10.1) mg/dL Total Bilirubin 0.5 (0.2-1.0) mg/dL AST 13 L (15-37) U/L ALT 26 (12-78) U/L Alkaline Phosphatase 47 (46-116) U/L Troponin I < 0.017 < 0.017 (0.000-0.056) ng/mL NT-Pro-B Natriuret Pep 106 (5-125) pg/mL Total Protein 8.3 H (6.4-8.2) g/dL Albumin 3.8 (3.4-5.0) g/dL Globulin 4.5 H (2.3-3.5) g/dL Albumin/Globulin Ratio 0.8 L (1.2-2.2) Triglycerides (15-150) mg/dL Cholesterol (0-200) mg/dL LDL Cholesterol Direct (0-100) mg/dL HDL Cholesterol (40-60) mg/dL Urine Color Yellow Urine Appearance Clear Urine pH 5.0 (4.5-8.0) Ur Specific [place] 1.020 (1.008-1.030) Urine Protein Trace (NEGATIVE) mg/dL Urine Glucose (UA) Normal (NEGATIVE) mg/dL Urine Ketones Negative (NEGATIVE) mg/dL Urine Occult Blood Negative (NEGATIVE) Urine Nitrite Negative (NEGATIVE) Urine Bilirubin Small (NEGATIVE) Urine Urobilinogen Normal (NORMAL) mg/dL Ur Leukocyte Esterase Moderate (NEGATIVE) Urine RBC 0-5 (0-5) Urine WBC 5-10 H (0-5) Ur Epithelial Cells Rare Amorphous Sediment Not seen Urine Bacteria Few Urine Mucus Not seen 09/11/18 Range/Units 04:47 Sodium (140-148) mmol/L Potassium (3.6-5.2) mmol/L Chloride (100-108) mmol/L Carbon Dioxide (21-32) mmol/L Anion Gap (5.0-14.0) mmol/L BUN (7-18) mg/dL Creatinine (0.6-1.0) mg/dL Est Cr Clr Drug Dosing mL/min Estimated GFR (MDRD) (>60) Glucose (74-106) mg/dL Calcium (8.5-10.1) mg/dL Total Bilirubin (0.2-1.0) mg/dL AST (15-37) U/L ALT (12-78) U/L Alkaline Phosphatase (46-116) U/L Troponin I < 0.017 (0.000-0.056) ng/mL NT-Pro-B Natriuret Pep (5-125) pg/mL Total Protein (6.4-8.2) g/dL Albumin (3.4-5.0) g/dL Globulin (2.3-3.5) g/dL Albumin/Globulin Ratio (1.2-2.2) Triglycerides 116 (15-150) mg/dL Cholesterol 142 (0-200) mg/dL LDL Cholesterol Direct 84 (0-100) mg/dL HDL Cholesterol 39 L (40-60) mg/dL Urine Color Urine Appearance Urine pH (4.5-8.0) Ur Specific [place] (1.008-1.030) Urine Protein (NEGATIVE) mg/dL Urine Glucose (UA) (NEGATIVE) mg/dL Urine Ketones (NEGATIVE) mg/dL Urine Occult Blood (NEGATIVE) Urine Nitrite (NEGATIVE) Urine Bilirubin (NEGATIVE) Urine Urobilinogen (NORMAL) mg/dL Ur Leukocyte Esterase (NEGATIVE) Urine RBC (0-5) Urine WBC (0-5) Ur Epithelial Cells Amorphous Sediment Urine Bacteria Urine Mucus Med Orders - Current: Current Medications Acetaminophen (Tylenol) 650 mg PO Q4H PRN PRN Reason: Pain (Mild 1-3)/fever Hydrochlorothiazide (Hydrochlorothiazide) 12.5 mg PO DAILY [facility] Levothyroxine Sodium (Levothyroxine) 75 mcg PO ACBREAKFAST [facility] Last Admin: 09/11/18 07:25 Dose: 75 mcg Losartan Potassium (Cozaar) 50 mg PO DAILY [facility] Meloxicam (Mobic) 15 mg PO DAILY [facility] Metformin HCl (Glucophage) 500 mg PO BIDMEALS [facility] Last Admin: 09/11/18 10:48 Dose: 500 mg Multivitamins/Minerals (Thera M Plus) 1 tab PO DAILY [facility] Insulin Detemir ( Levemir) 54 Unit Pom 0 unit SQ DAILY [facility] Dulaglutude ( Trulicity) InjPom* * 0 each SQ Q7D [facility] Last Admin: 09/10/18 17:16 Dose: 1 each Ondansetron HCl (Zofran Odt) 4 mg PO Q6H PRN PRN Reason: Nausea able to take PO Ranitidine HCl (Zantac) 300 mg PO BEDTIME [facility] Last Admin: 09/10/18 20:28 Dose: 300 mg Simvastatin (Zocor) 40 mg PO BEDTIME [facility] Last Admin: 09/10/18 20:28 Dose: 40 mg Zafirlukast (Accolate) 20 mg PO BID [facility] - Exam Quality Assessment: Denies: Supplemental Oxygen General: Reports: Alert, Oriented, Cooperative, No Acute Distress Lungs: Reports: Normal Respiratory Effort 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: Reports: Regular Rate, Regular Rhythm GI/Abdominal Exam: Soft, No Distention Extremities: No Pedal Edema Psy/Mental Status: Reports: Alert, Normal Affect
[2018-09-11 10:58] VITALS: BP 150/68
--- NOTE | 2018-09-11 12:41 | CRLNM ---
NUCLEAR MYOCARDIAL PERFUSION IMAGING: INDICATION: Chest pain. TECHNIQUE: Nuclear myocardial perfusion imaging was performed after administration of 11.1 mCi of Tc 99m labeled Myoview during rest and 30.9 mCi during stress. FINDINGS: Ejection fraction is calculated at 66%. There is a small region of fixed hypoperfusion involving the inferolateral wall. No convincing reversible areas of hypoperfusion are identified. No apparent regional wall motion abnormalities. End diastolic volume measures 53 mL, end systolic volume measures 18 mL, stroke volume 35 mL. TID measures 0.99. IMPRESSION: 1. Small area of fixed hypoperfusion involving the inferolateral wall. 2. No evidence of reversible myocardial perfusion deficits. 3. Ejection fraction is calculated at 66%. 4. No regional wall motion abnormalities. DELIA HOLLIDAY M.D./ 1104 hours 1118 hours MTDD
--- NOTE | 2018-09-11 23:09 | STRESS ---
DATE OF SERVICE: 09/11/2018 STRESS TEST REPORT PROPOSED PROCEDURE: Exercise Cardiolite stress test. INDICATION FOR STRESS TEST: Exertional chest pain. DESCRIPTION OF PROCEDURE: Perla is a 73-year-old female, here for an inpatient stress test. Her baseline blood pressure is 165/95 and her pulse is 63. Baseline EKG shows a normal sinus rhythm with a normal axis and no significant abnormalities, though, we did notice two episodes of sinus pauses during the resting phase as well as one in the recovery phase. The stress test was administered per the Suhas protocol with a target heart rate of 126. Review of the continuous EKG monitoring showed no significant ST depressions or ST changes during the stress or recovery portion of the test. As mentioned, we did see one episode of sinus pause in the recovery phase at around 5 minutes and 6 seconds. The blood pressure did rise to a maximum of 178/92 early in the recovery phase and returned to baseline thereafter. Heart rate nara from 63 up to 139 at 5 minutes and 14 seconds of exercise. After the procedure, her blood pressure is 164/78 and her pulse was 93. Review of the career resource technician's notes suggest that the patient tolerated the test well. They did note frequent PVCs during exercise. She did not have any chest pain or pressure. The stress test was completed after she surpassed her target heart rate. IMPRESSION: Negative EKG portion of the stress test. The patient did not have chest pain or pressure. She did reach and surpassed her target heart rate. The nuclear medicine portion will be interpreted separately. Andrea Montoya MD /[id number]
== END 2018-09-11 11:23 | disposition home or self-care (01) ==
LOC: JP.ED 10:12 → JP.MS 14:59
PROVIDERS: ADMIT Internal Medicine; ATTEND Internal Medicine
DX: I49.9 Cardiac arrhythmia, unspecified (principal); I20.9 Angina pectoris, unspecified; E11.9 Type 2 diabetes mellitus without complications; E03.9 Hypothyroidism, unspecified; I10 Essential (primary) hypertension; Z79.4 Long term (current) use of insulin; Z79.84 Long term (current) use of oral hypoglycemic drugs; Z79.899 Other long term (current) drug therapy; Z88.6 Allergy status to analgesic agent; Z88.1 Allergy status to other antibiotic agents; Z88.8 Allergy status to other drugs, medicaments and biological substances
CPT/HCPCS: 36415; 71045; 78452; 80053; 80061; 81001; 82962; 83880; 84484; 85025; 93005; 93017; 99285; A9270; A9500; G0378; 93010; 93018

== ENCOUNTER 2019-12-07 20:54 | Emergency (ER) | payer MEDICARE, BC, MEDICAID ==
[2019-12-07 21:18] VITALS: BP 187/57; PULSE 83
[2019-12-07] MEDS ORDERED: Sodium Chloride 0.9% 10 ML Syringe FLUSH PRN (21:40)
[2019-12-07] MEDS ORDERED: oxyCODONE 5 MG Tab PO ONE (21:42)
[2019-12-07] MEDS ORDERED: Sodium Chloride 0.9% 1,000 ML IV SCH (21:45)
--- NOTE | 2019-12-07 22:49 | EDM.PDOC ---
ED HPI GENERAL MEDICAL PROBLEM - General Chief Complaint: Back Pain or Injury Stated Complaint: FELL Time Seen by Provider: 12/07/19 20:59 Source of Information: Reports: Patient, EMS Notes Reviewed, Provider ( ) , RN History Limitations: Reports: No Limitations - History of Present Illness INITIAL COMMENTS - FREE TEXT/NARRATIVE: chief complaint: fall at home at 1 pm reports fell in her garage, hitting her head and back, unknown LOC. complaints of pain in ribs. reports bilateral pain in her chest and back Onset: Today Onset Date: 12/07/19 Onset Time: 13:00 Duration: Hour(s): Location: Reports: Head, Chest Quality: Reports: Other (pain in ribs) Severity: Mild Improves with: Reports: Rest Worsens with: Reports: Movement Context: Reports: Other (fall in home) Middle Back Pain Score (Numeric/FACES): 9 - Related Data Allergies Allergy/AdvReac Type Severity Reaction Status Date / Time aspirin Allergy Difficulty Verified 11/29/16 10:37 Breathing cephalexin [From Keflex] Allergy Wheezing Verified 11/29/16 10:37 phenazopyridine Allergy Rash Verified 11/29/16 10:37 [From Pyridium] Home Meds: Home Meds Cranberry 200 mg PO DAILY 11/29/16 [History] Dulaglutide [Trulicity] 0.75 mg SUBCUT WEEKLY 11/29/16 [History] Fish Oil/[place]-3 Fatty Acids [Fish Oil 1,000 MG] 1,000 mg PO DAILY 11/29/16 [ History] Fluticasone Propionate [Flovent] 50 mcg IH DAILY 11/29/16 [History] Insulin Detemir [Levemir] 54 unit SQ DAILY 11/29/16 [History] Levothyroxine 75 mcg PO ACBREAKFAST 11/29/16 [History] Losartan/Hydrochlorothiazide [Hyzaar 50-12.5 Tablet] 1 each PO DAILY 11/29/16 [ History] Meloxicam [Mobic] 15 mg PO DAILY 11/29/16 [History] Multivitamin with Minerals [Multiple Vitamin] 1 tab PO DAILY 11/29/16 [History] Ranitidine [Zantac] 300 mg PO BEDTIME 11/29/16 [History] Simvastatin [Zocor] 40 mg PO BEDTIME 11/29/16 [History] Zafirlukast [Accolate] 20 mg PO BID 11/29/16 [History] metFORMIN [Glucophage] 500 mg PO BIDMEALS 11/29/16 [History] Past Medical History HEENT History: Reports: Impaired Vision 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 History: 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, Hypertension 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: Endocrine/Metabolic History: Reports: Diabetes, Type II, Hypothyroidism - Infectious Disease History Infectious Disease History: Reports: Chicken Pox - Past Surgical History GI Surgical History: Reports: Cholecystectomy Female Surgical History: Reports: Hysterectomy Social & Family History - Tobacco Use Smoking Status *Q: Never Smoker - Caffeine Use Caffeine Use: Reports: Soda - Recreational Drug Use Recreational Drug Use: No - Living Situation & Occupation Living situation: Reports: (lives with ) ED ROS GENERAL - Review of Systems Review Of Systems: See Below Constitutional: Reports: Other (pain in chest-ribs area, head pain) HEENT: Reports: No Symptoms Respiratory: Reports: No Symptoms 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: Reports: No Symptoms Endocrine: Reports: No Symptoms GI/Abdominal: Reports: No Symptoms : Reports: No Symptoms Musculoskeletal: Reports: Back Pain, Other (ribs and chest pain) Skin: Reports: No Symptoms (no bruising or hematoma are noted) Neurological: Reports: Headache (left occiput) Psychiatric: Reports: No Symptoms Hematologic/Lymphatic: Reports: No Symptoms Immunologic: Reports: No Symptoms ED EXAM, GENERAL - Physical Exam Exam: See Below Exam Limited By: No Limitations General Appearance: Alert, WD/WN, No Apparent Distress Eye Exam: Bilateral Eye: EOMI, PERRL Ears: Normal External Exam, Normal Canal, Hearing Grossly Normal, Normal TMs Ear Exam: Bilateral Ear: Auricle Normal, Canal Normal, TM normal Nose: Normal Inspection, Normal Mucosa, No Blood Throat/Mouth: Normal Inspection, Normal Lips, Normal Teeth, Normal Gums, Normal Oropharynx, Normal Voice, No Airway Compromise Head: Atraumatic, Normocephalic Neck: Normal Inspection, Supple, Non-Tender, Full Range of Motion Respiratory/Chest: No Respiratory Distress, Lungs Clear, Normal Breath Sounds, No Accessory Muscle Use, Chest Non-Tender 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: Normal Peripheral Pulses, Regular Rate, Rhythm, No Edema, No Gallop, No JVD, No Murmur, No Rub GI/Abdominal: Normal Bowel Sounds, Soft, Non-Tender, No Organomegaly, No Distention, No Abnormal Bruit, No Mass (Female) Exam: Deferred Rectal (Female) Exam: Deferred Back Exam: Muscle Spasm (bilateral mid to lower ribs), Other (bilateral spasm, inspiratory pain in chest and ribs) Extremities: Normal Inspection, Normal Range of Motion, Non-Tender, Normal Capillary Refill, No Pedal Edema Neurological: Alert, Oriented, CN II-XII Intact, Normal Cognition, Normal Gait, Normal Reflexes, No Motor/Sensory Deficits Psychiatric: Normal Affect, Normal Mood Skin Exam: Warm, Dry, Intact, Normal Color, No Rash Lymphatic: No Adenopathy Course - Vital Signs Last Recorded V/S: Last Vital Signs Temp 36.1 C 12/07/19 21:25 Pulse 83 12/07/19 21:25 Resp 16 12/07/19 21:25 BP 187/57 H 12/07/19 21:25 Pulse Ox 97 12/07/19 21:25 - Orders/Labs/Meds Orders: Active Orders 24 hr Category Date Time Status Peripheral IV Care [RC] . DIRECTED Care 12/07/19 21:40 Active Peripheral IV Insertion Adult [OM.PC] Routine Oth 12/07/19 21:40 Ordered Labs: Laboratory Tests 12/07/19 12/07/19 12/07/19 Range/Units 21:53 21:53 23:01 WBC 7.3 (4.5-11.0) K/uL RBC 4.14 (3.30-5.50) M/uL Hgb 11.7 L (12.0-15.0) g/dL Hct 36.5 (36.0-48.0) % MCV 88 (80-98) fL MCH 28 (27-31) pg MCHC 32 (32-36) % Plt Count 185 (150-400) K/uL Neut % (Auto) 59 (36-66) % Lymph % (Auto) 28 (24-44) % [place] % (Auto) 7 H (2-6) % Eos % (Auto) 5 H (2-4) % Baso % (Auto) 0 (0-1) % Sodium 138 L (140-148) mmol/L Potassium 3.9 (3.6-5.2) mmol/L Chloride 103 (100-108) mmol/L Carbon Dioxide 24 (21-32) mmol/L Anion Gap 14.9 H (5.0-14.0) mmol/L BUN 41 H (7-18) mg/dL Creatinine 1.2 H (0.6-1.0) mg/dL Est Cr Clr Drug Dosing 39.09 mL/min Estimated GFR (MDRD) 44 L (>60) Glucose 156 H (74-106) mg/dL Calcium 8.6 (8.5-10.1) mg/dL Urine Color Yellow (YELLOW) Urine Appearance Clear (CLEAR) Urine pH 5.5 (5.0-8.0) Ur Specific [place] 1.015 (1.008-1.030) Urine Protein Negative (NEGATIVE) mg/dL Urine Glucose (UA) Negative (NEGATIVE) mg/dL Urine Ketones Negative (NEGATIVE) mg/dL Urine Occult Blood Negative (NEGATIVE) Urine Nitrite Negative (NEGATIVE) Urine Bilirubin Negative (NEGATIVE) Urine Urobilinogen 0.2 (0.2-1.0) EU/dL Ur Leukocyte Esterase Trace H (NEGATIVE) Urine RBC 0-5 (0-5) Urine WBC 0-5 (0-5) Ur Epithelial Cells Few Amorphous Sediment Rare Urine Bacteria Not seen Urine Mucus Not seen Meds: Medications Discontinued Medications Generic Name Dose Route Start Last Admin Trade Name Freq PRN Reason Stop Dose Admin Sodium Chloride 1,000 mls @ 500 mls/hr 12/07/19 21:45 Normal Saline IV ASDIRECTED [facility] Oxycodone HCl 5 mg 12/07/19 21:42 12/07/19 21:49 Oxycodone PO 12/07/19 21:43 5 mg ONETIME ONE Administration Sodium Chloride 10 ml 12/07/19 21:40 Saline Flush FLUSH ASDIRECTED PRN Keep Vein Open - Re-Assessments/Exams Free Text/Narrative Re-Assessment/Exam: 12/07/19 22:52 due to advance age and unknown LOC with rib and chest pain will do CT scan of Head, chest and abdomen to rule out any pathology or acute bony injury. 12/07/19 23:[address] negative [id number] CT- no injury to organs. compression fracture of T8-9, small rib fracture to Right 11th rib, and Left 10th rib fracture. discussed with Mrs. Aldrich, admission or pain control or going home. She would like to go home. her is able to assist her at home. she will follow up with Juliana Gray NP in next 3 to 5 days or will return to ER if experience uncontrolled pain. 12/07/19 23:[address] report Departure - Departure Time of Disposition: 23:41 Disposition: Home, Self-Care 01 Condition: Good Clinical Impression: Rib fractures, Compression fracture of T8 vertebra Fall as cause of accidental injury at home as place of occurrence Qualifiers: Encounter type: initial encounter Qualified Code(s): W19.XXXA - Unspecified fall, initial encounter Head injury Qualifiers: Encounter type: initial encounter Qualified Code(s): S09.90XA - Unspecified injury of head, initial encounter - Discharge Information *PRESCRIPTION DRUG MONITORING PROGRAM REVIEWED*: Not Applicable *COPY OF PRESCRIPTION DRUG MONITORING REPORT IN PATIENT ASHLEY: Not Applicable Instructions: Muscle Strain, [id number], Rib Fracture, [id number], Thoracic Spine Fracture, [id number] Referrals: Shawnee Gray PA [Primary Care Provider] - Forms: ED Department Discharge Care Plan Goals: Fall at home Ribs fracture and compression fracture of T8-[address] negative for acute injury, noted sinus congestion follow up in ENT -treat pain or muscle spasms with Tylenol or Motrin as needed -Tramadol 50 mg take one by mouth every 4 to 6 hours as needed for pain control. #15 -rest -push fluids -follow in Primary Care for recheck in 3 days Return to ER for any nausea, vomiting, increased pain, any changes in mood or balance, not improved or any concerns. Head CT negative [id number] CT- no injury to organs. compression fracture of T8-9, small rib fracture to Right 11th rib, and Left 10th rib fracture. discussed with Mrs. Aldrich, admission or pain control or going home. She would like to go home. her is able to assist her at home. she will follow up with Juliana Gray NP in next 3 to 5 days or will return to ER if experience uncontrolled pain. Sepsis Event Note (ED) - Evaluation Sepsis Screening Result: No Definite Risk - Focused Exam Vital Signs: Vital Signs Temp Pulse Resp BP Pulse Ox 12/07/19 21:25 36.1 C 83 16 187/57 H 97 12/07/19 21:17 36.1 C 83 16 187/57 H 97 - Problem List & Annotations (1) Fall as cause of accidental injury at home as place of occurrence SNOMED Code(s): 40034917 Code(s): W19.XXXA - UNSPECIFIED FALL, INITIAL ENCOUNTER; Y92.009 - UNSP PLACE IN UNSP NON-INSTITUT (PRIVATE) RESIDENCE PLACE Status: Acute Priority: High Current Visit: Yes Qualifiers: Encounter type: initial encounter Qualified Code(s): W19.XXXA - Unspecified fall, initial encounter; Y92.009 - Unspecified place in unspecified non-institutional (private) residence as the place of occurrence of the external cause (2) Head injury SNOMED Code(s): 82160050 Code(s): S09.90XA - UNSPECIFIED INJURY OF HEAD, INITIAL ENCOUNTER Status: Acute Priority: High Current Visit: Yes Qualifiers: Encounter type: initial encounter Qualified Code(s): S09.90XA - Unspecified injury of head, initial encounter (3) Compression fracture of T8 vertebra SNOMED Code(s): 835276408 Code(s): S22.060A - WEDGE COMPRESSION FRACTURE OF T7-T8 VERTEBRA, INIT Status: Acute Priority: High Current Visit: Yes Qualifiers: Encounter type: initial encounter Qualified Code(s): S22.060A - Wedge compression fracture of T7-T8 vertebra, initial encounter for closed fracture (4) Rib fractures SNOMED Code(s): 13681319 Code(s): S22.39XA - FRACTURE OF ONE RIB, UNSP SIDE, INIT FOR CLOS FX Status : Acute Current Visit: Yes Qualifiers: Encounter type: initial encounter Fracture type: closed Laterality: bilateral - Problem List Review Problem List Initiated/Reviewed/Updated: Yes - Assessment/Plan Plan: Fall at home Ribs and T8-9 fractures Head Injury -treat pain or muscle spasms with Tylenol or Motrin as needed -Tramadol 50 mg take one by mouth every 4 to 6 hours as needed for pain control. #15 -rest -push fluids -follow in Primary Care for recheck in 3 days Return to ER for any nausea, vomiting, increased pain, any changes in mood or balance, not improved or any concerns. Head CT negative [id number] CT- no injury to organs. compression fracture of T8-9, small rib fracture to Right 11th rib, and Left 10th rib fracture. discussed with Mrs. Aldrich, admission or pain control or going home. She would like to go home. her is able to assist her at home. she will follow up with Juliana Gray NP in next 3 to 5 days or will return to ER if experience uncontrolled pain. results of CT scan given to Mrs. Aldrich
--- NOTE | 2019-12-07 22:56 | CRLCT ---
INDICATION: Fall TECHNIQUE: CT head without contrast. COMPARISON: None available FINDINGS: There is mild age-related cortical atrophy. The ventricles are within normal limits for the patient`s age. There is no mass effect or midline shift. There is no loss of velasco-white differentiation. There is no evidence of an acute intracranial hemorrhage. No acute calvarial fracture is seen. There is paranasal sinus mucosal thickening. Polypoid soft tissue densities are seen in the nasal cavity. The mastoid air cells are clear. The visualized orbits are within normal limits. IMPRESSION: No evidence of an acute intracranial hemorrhage, mass effect or loss of velasco-white differentiation. Paranasal sinus disease and polypoid soft tissue densities in the nasal cavity. Correlate with ENT evaluation. Dictated by Chester Alvarez MD @ 12/07/2019 10:54:11 PM Please note that all CT scans at this facility use dose modulation, iterative reconstruction, and/or weight-based dosing when appropriate to reduce radiation dose to as low as reasonably achievable. Dictated by: Chester Alvarez MD @ 12/07/2019 22:54:18 (Electronically Signed)
--- NOTE | 2019-12-07 23:17 | CRLCT ---
INDICATION: Fall. SOB. Mid back pain TECHNIQUE: CT chest, abdomen and pelvis acquired without IV contrast. COMPARISON: None available FINDINGS: The study is limited for evaluation of trauma given the lack of intravenous contrast. Chest: 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 structures: Heart size is normal. Thoracic aorta and main pulmonary artery are normal in caliber. Atherosclerotic changes. Mediastinum and lamin: No mass or adenopathy. Lungs: Minimal left basilar subsegmental atelectasis. No consolidation. No pneumothorax. Pleura and pericardium: No pleural effusions. Small pericardial fluid at the base, near physiologic limits. Chest wall and axilla: No mass or adenopathy. Bones: Chronic deformities of several posterior and posteromedial ribs. A small lucency in the posterior right 11th rib. A lucency involving the posteromedial left 10th rib which appears partially corticated. A lucency involving left anterolateral fused flowing osteophytes at the T8-9 level, suggestive of an acute fracture. Abdomen and Pelvis: Liver: Unremarkable. Spleen: Unremarkable. Pancreas: Unremarkable. Gallbladder and bile ducts: Cholecystectomy. Adrenal glands: Unremarkable. Kidneys: Unremarkable. GI tract: No bowel obstruction. The appendix is not seen. A small infraumbilical ventral hernia containing a short segment of the mid transverse colon without associated mechanical obstruction. Few sigmoid diverticula without diverticulitis. Vascular structures: Mild atherosclerotic changes. 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 Lymph nodes: Borderline upper abdominal lymph nodes, nonspecific. Miscellaneous: No significant free fluid or free air. A tiny fat containing umbilical hernia. Foci of induration in the anterior lower abdominal wall subcutaneous fat, nonspecific. Pelvic Organs: Hysterectomy. No gross bladder abnormality seen. Bones: Unremarkable for age. IMPRESSION: No CT evidence of a gross visceral injury in the chest, abdomen or pelvis, given the limitations of a noncontrast examination. A lucency through fused flowing osteophytes at the T8-9 level suggestive of an acute fracture. A small lucency in the posterior right 11th rib concerning for an acute on chronic fracture. An osseous lucency in the posteromedial left 10th rib is at least partially corticated. Correlate for regional tenderness. A small ventral hernia containing a short segment of the mid transverse colon without associated mechanical obstruction. Dictated by Chester Alvarez MD @ 12/07/2019 11:15:20 PM Please note that all CT scans at this facility use dose modulation, iterative reconstruction, and/or weight-based dosing when appropriate to reduce radiation dose to as low as reasonably achievable. Dictated by: Chester Alvarez MD @ 12/07/2019 23:15:25 (Electronically Signed)
== END 2019-12-08 00:11 | disposition home or self-care (01) ==
LOC: JP.ED 20:54
DX: S09.90XA Unspecified injury of head, initial encounter (principal); S22.41XA Multiple fractures of ribs, right side, initial encounter for closed fracture; S22.069A Unspecified fracture of T7-T8 vertebra, initial encounter for closed fracture; I10 Essential (primary) hypertension; E78.00 Pure hypercholesterolemia, unspecified; E11.9 Type 2 diabetes mellitus without complications; E03.9 Hypothyroidism, unspecified; Z88.6 Allergy status to analgesic agent; Z88.1 Allergy status to other antibiotic agents; Z88.8 Allergy status to other drugs, medicaments and biological substances; Z79.4 Long term (current) use of insulin; Z79.899 Other long term (current) drug therapy; W01.10XA Fall on same level from slipping, tripping and stumbling with subsequent striking against unspecified object, initial encounter; Y92.009 Unspecified place in unspecified non-institutional (private) residence as the place of occurrence of the external cause
CPT/HCPCS: 36415; 70450; 71250; 74176; 80048; 81001; 85025; 99284; A9270; 99283

== ENCOUNTER 2023-12-25 05:45 | Day surgery (SDC) | payer MEDICARE, MEDICAID ==
[2023-12-25] MEDS: Sodium Chloride 0.9% 10 ML Syringe FLUSH PRN (06:43)
[2023-12-25 08:05] VITALS: BP 170/72; PULSE 72
== END 2023-12-25 08:05 | disposition home or self-care (01) ==
LOC: JP.SDS 05:45
PROVIDERS: ATTEND Ophthalmology
DX: E11.36 Type 2 diabetes mellitus with diabetic cataract (principal); H25.12 Age-related nuclear cataract, left eye; I12.9 Hypertensive chronic kidney disease with stage 1 through stage 4 chronic kidney disease, or unspecified chronic kidney disease; E11.22 Type 2 diabetes mellitus with diabetic chronic kidney disease; K21.9 Gastro-esophageal reflux disease without esophagitis; N18.9 Chronic kidney disease, unspecified
CPT/HCPCS: 66984; J3490; V2632

== ENCOUNTER 2024-01-08 05:44 | Day surgery (SDC) | payer MEDICARE, MEDICAID ==
[2024-01-08] MEDS: Sodium Chloride 0.9% 10 ML Syringe FLUSH PRN (06:37)
[2024-01-08 08:12] VITALS: BP 173/67; PULSE 71
== END 2024-01-08 08:18 | disposition home or self-care (01) ==
LOC: JP.SDS 05:44
PROVIDERS: ATTEND Ophthalmology
DX: H25.11 Age-related nuclear cataract, right eye (principal)
CPT/HCPCS: 00142-QZ; J3490; V2632